=== PATIENT | female | born 1970 | race Caucasian/White ===

== ENCOUNTER 2017-02-18 17:42 | Emergency (ER) | payer SELFPAY ==
[2017-02-18 18:08] VITALS: RESP 18; TEMP 97.8
--- NOTE | 2017-02-18 19:00 | C.PDOC ---
History Of Present Illness 47 y/o female with Hx of HTN presents to ED with complaints of left thigh pain for 1 week. Patient states pain starts on top of thigh that shoots to mid thigh and denies injury. Patient has difficulty bearing weight because of pain and states it started around the same time she started her HTN medications. Patient rates pain 8/10 and describes it as dull and throbbing in nature. Patient denies heavy object lifting, vigorous exercise or any other complaints at this time. Time Seen by Provider: 02/18/17 18:12 Chief Complaint (Nursing): Lower Extremity Problem/Injury History Per: Patient History/Exam Limitations: no limitations Onset/Duration Of Symptoms: Days Current Symptoms Are (Timing): Still Present Past Medical History Reviewed: Historical Data, Nursing Documentation, Vital Signs Vital Signs: Last Vital Signs Temp 97.8 F 02/18/17 18:03 Pulse 65 02/18/17 18:03 Resp 18 02/18/17 18:03 BP 124/74 02/18/17 18:03 Pulse Ox 99 02/18/17 19:02 - Medical History PMH: HTN - [facility] Procedures ARTIF RUPT MEMBRANES NEC (07/08/01) LOW CERVICAL (07/08/01) UNILAT FALLOP TUBE DESTR (07/08/01) Family History: States: No Known Family Hx - Social History Hx Alcohol Use: No Hx Substance Use: No - Immunization History Hx Tetanus Toxoid Vaccination: No Hx Influenza Vaccination: No Hx Pneumococcal Vaccination: No Review Of Systems Except As Marked, All Systems Reviewed And Found Negative. Constitutional: Negative for: Fever, Chills Musculoskeletal: Positive for: Leg Pain. Negative for: Back Pain Skin: Negative for: Rash, Bruising Neurological: Negative for: Weakness, Numbness Physical Exam - Physical Exam Appears: Non-toxic, No Acute Distress Skin: Normal Color, Warm Head: Atraumatic, Normacephalic Extremity: No Tenderness, No Swelling, Other (Pain with ambulation ) Neurological/Psych: Oriented x3, Normal Speech, Normal Motor, Normal Sensation, Normal Reflexes ED Course And Treatment O2 Sat by Pulse Oximetry: 99 (RA) Pulse Ox Interpretation: Normal Medical Decision Making Medical Decision Making: Xray to r/o lytic lesions Patient given Tramadol and discharged home Disposition Counseled Patient/Family Regarding: Studies Performed, Need For Followup, Rx Given - Disposition Disposition: HOME/ ROUTINE Disposition Time: 18:55 Condition: STABLE Prescriptions: Ibuprofen [Motrin] 600 mg PO TID #15 tab traMADol/Acetaminophen [Ultracet 37.5/325 mg] 1 tab PO TID PRN #20 tab PRN Reason: pain Instructions: Leg Cramps (ED) Forms: Gen Discharge Inst Lao - POA Present On Arrival: None - Clinical Impression Clinical Impression: Joint pain - Scribe Statement The provider has reviewed the documentation as recorded by the Shaan Cook All medical record entries made by the Cassiibdina were at my direction and personally dictated by me. I have reviewed the chart and agree that the record accurately reflects my personal performance of the history, physical exam, medical decision making, and the department course for this patient. I have also personally directed, reviewed, and agree with the discharge instructions and disposition.
[2017-02-18 19:36] VITALS: BP 110/71; PULSE 63; O2SAT 97
--- NOTE | 2017-02-19 13:22 | RAD ---
Left femur four views History: Pain. Comparison: None available. Findings: Moderate degenerative changes of the left hip joint space with subchondral sclerosis and osteophytosis. No evidence for acute displaced fracture or dislocation. Productive change off the left iliac crest. On the lateral view of the proximal femur, there is some productive change along the posterior cortex of the proximal medullary cavity, nonspecific. Impression: Degenerative changes. If pain persists, consider MRI.
== END 2017-02-18 19:15 | disposition home or self-care (01) ==
LOC: C.ER 17:42
DX: M25.50 Pain in unspecified joint (principal)

== ENCOUNTER 2017-10-18 08:57 | Emergency (ER) | payer OTHER ==
--- NOTE | 2017-10-18 10:43 | RAD ---
PROCEDURE: Left Knee Radiographs. HISTORY: COMPARISON: None available. FINDINGS: BONES: No acute displaced fracture. JOINTS: No dislocation. JOINT EFFUSION: No significant joint effusion. OTHER FINDINGS: None. IMPRESSION: No acute displaced fracture, dislocation, or significant joint effusion identified. If symptoms persist, or if there is continued clinical concern, x-ray follow-up in 7-10 days should be considered.
--- NOTE | 2017-10-18 10:55 | C.PDOC ---
History Of Present Illness 47 year old female presents to the ED for evaluation of left posterior knee pain which began 1 week ago. Patient states her pain is worse with walking. She denies trauma/injury, redness, swelling to the area. She denies history of DVT/ PE or recent surgery. Time Seen by Provider: 10/18/17 09:19 Chief Complaint (Nursing): Lower Extremity Problem/Injury History Per: Patient History/Exam Limitations: no limitations Onset/Duration Of Symptoms: Other (1 week ) Current Symptoms Are (Timing): Still Present Additional History Per: Patient - Knee Description Of Injury: denies: Fell, Struck With Object Past Medical History Reviewed: Historical Data, Nursing Documentation, Vital Signs Vital Signs: Last Vital Signs Temp 98 F 10/18/17 09:02 Pulse 65 10/18/17 09:02 Resp 20 10/18/17 09:02 BP 156/88 H 10/18/17 09:02 Pulse Ox 99 10/18/17 11:20 - Medical History PMH: HTN Surgical History: No Surg Hx - [facility] Procedures ARTIF RUPT MEMBRANES NEC (07/08/01) LOW CERVICAL (07/08/01) UNILAT FALLOP TUBE DESTR (07/08/01) Family History: States: Unknown Family Hx - Social History Hx Alcohol Use: No Hx Substance Use: No - Immunization History Hx Tetanus Toxoid Vaccination: No Hx Influenza Vaccination: No Hx Pneumococcal Vaccination: No Review Of Systems Musculoskeletal: Positive for: Other (left knee pain ) Physical Exam - Physical Exam Appears: Non-toxic, No Acute Distress Skin: Normal Color, Warm, Dry, No Other (erythema to left knee ) Extremity: Normal ROM, Tenderness (to left popliteal region ), Capillary Refill (less than 2 seconds ), No Swelling, No Other (cellulitic process or calf swelling ) Neurological/Psych: Oriented x3, Normal Speech, Normal Cognition, Normal Sensation Gait: Steady ED Course And Treatment O2 Sat by Pulse Oximetry: 99 (on RA) Pulse Ox Interpretation: Normal Medical Decision Making Medical Decision Making: Progress: Left knee XR and Venous Duplex Scan ordered. XR results are negative. Scan of left lower extremity shows no abnormal findings. Motrin PO and Ultram PO administered. On reassessment, patient is resting comfortably, showing no signs of distress and reports an improvement in her symptoms. Patient is stable for discharge and is advised to f/u with orthopedic care within 1-2 days for further evaluation. Disposition Counseled Patient/Family Regarding: Studies Performed, Diagnosis, Need For Followup, Rx Given - Disposition Referrals: [facility] [Outside] Disposition: HOME/ ROUTINE Disposition Time: 11:17 Condition: STABLE Additional Instructions: follow up with your doctor in 2 days call to make an appointment take medications as prescribed return to ER if symptoms worsens or progress Prescriptions: Naproxen [Naprosyn] 500 mg PO BID PRN #16 tab PRN Reason: Pain, Moderate (4-7) traMADol [Ultram] 50 mg PO TID PRN #8 tab PRN Reason: Pain, Moderate (4-7) Instructions: Knee Pain Forms: Gen Discharge Inst [place], [employer] ([place]) Print Language: UKRAINIAN - Clinical Impression Clinical Impression: Joint pain - Scribe Statement The provider has reviewed the documentation as recorded by the Scribe (Alannah Garcia) Provider Attestation: All medical record entries made by the Scribe were at my direction and personally dictated by me. I have reviewed the chart and agree that the record accurately reflects my personal performance of the history, physical exam, medical decision making, and the department course for this patient. I have also personally directed, reviewed, and agree with the discharge instructions and disposition.
[2017-10-18 11:33] VITALS: BP 120/75; PULSE 56; RESP 18; TEMP 98.5; O2SAT 97
--- NOTE | 2017-10-18 11:57 | VASCLAB ---
PROCEDURE: Left Lower Extremity Venous Duplex Exam. HISTORY: Pain in limb PRIORS: None. TECHNIQUE: Left common femoral, femoral, popliteal and posterior tibial, peroneal and great saphenous veins were evaluated. Flow was assessed with color Doppler, compressibility, assessment of phasic flow and augmentation response. Report prepared by RAZIA Dominguez FINDINGS: LEFT: 1. Common Femoral Vein: 1.1. Compressibility - Fully compressible: Thrombus - None : Flow - Phasic: Augmentation -Normal: Reflux - None. 2. Femoral Vein: 2.1. Compressibility - Fully compressible: Thrombus - None: Flow - Phasic: Augmentation -Normal: Reflux - None. 3. Popliteal Vein: 3.1. Compressibility - Fully compressible: Thrombus - None: Flow - Phasic: Augmentation -Normal: Reflux - None. 4. Posterior Tibial Vein: 4.1. Compressibility - Fully compressible: Thrombus - None: Flow - Phasic: Augmentation -Normal: Reflux - None. 5. Peroneal Vein: 5.1. Compressibility - Fully compressible: Thrombus - None: Flow - Phasic: Augmentation -Normal: Reflux - None. 6. Great Saphenous Vein: 6.1. Not visualized. OTHER FINDINGS: IMPRESSION: No evidence of deep or superficial vein thrombosis of the left lower extremity with excellent venous flow. Normal valve function noted of the left side. Normal venous flow noted in the right common femoral vein.
== END 2017-10-18 11:34 | disposition home or self-care (01) ==
LOC: C.ER 08:57
DX: M25.562 Pain in left knee (principal)